=== PATIENT | female | born 1995 | race African-American/Black ===

== ENCOUNTER 2017-02-19 23:53 | Emergency (ER) | payer SELFPAY ==
[2017-02-20 01:16] LABS: #Eosinphils 0.2 thou/uL (0.0-0.7); #Lymphocytes 2.8 thou/uL (1.20-3.40); #Monocytes 0.8 thou/uL (0.11-0.59); #Neutrophils 4.2 thou/uL (1.40-6.50); %Basophils 0.3 % (0.0-1.0); %Eosinophils 2.6 % (0.0-10.0); %Lymphocytes 34.8 % (28.0-48.0); %Monocytes 9.9 % (0.0-4.0); %Neutrophils 52.4 % (31.0-61.0); Hemoglobin 11.1 g/dL (12.0-16.0); MDiff Complete? YES; Mean Corpuscular HGB CONC 30.9 g/dL (32.0-36.0); Mean Corpuscular Hemoglobin 21.3 pg (25.0-35.0); Mean Platelet Volume 6.7 fL (7.4-10.4); Microcytosis MODERATE=15-30 cells (100X) (0-5/hpf); PLT Morphology Comment Appears Adequate; Platelet Count 316 thou/uL (130-400); Red Blood Cell (RBC) Count 5.18 mill/uL (4.00-5.20); White Blood Cell (WBC) Count 7.9 thou/uL (4.8-10.8)
[2017-02-20] MEDS ORDERED: Ondansetron HCl/PF 4 MG/2 ML Vial ONE (01:17)
[2017-02-20] MEDS ORDERED: Sodium Chloride 0.9% 1,000 ML ONE (01:17)
[2017-02-20 01:23] LABS: Bilirubin Negative (Negative); Blood, Urine Moderate (Negative); Clarity Clear (Clear); Glucose, Urine (Dipstick) Negative (Negative); Leukocyte Negative (Negative); Nitrite Negative (Negative); Protein, Urine (Dipstick) 30 mg/dL (Neg-Trace); Specific Gravity, Urine 1.025 (1.005-1.030)
[2017-02-20 01:24] LABS: Pregnancy Test - Urine (BHCG) NEGATIVE (NEGATIVE); Pregu Control Bar Appear? YES (CONTROL BAR); Specific Gravity 1.025 (1.002-1.036)
[2017-02-20 01:28] LABS: Bacteria/HPF None Seen HPF (None Seen); RBC/HPF 21-50 HPF (0-3); WBC/HPF None Seen HPF (0-3)
[2017-02-20 01:29] LABS: CKMB 0.3 ng/mL (0-6.6); Troponin I Less than 0.010 ng/mL (< 0.028)
[2017-02-20 01:31] LABS: ALT (SGPT) 30 U/L (8-55); AST (SGOT) 19 U/L (5-34); Albumin 4.3 g/dL (3.5-5.0); Alkaline Phosphatase 85 U/L (40-150); Anion Gap 16 mmol/L (10-20); BUN (Urea Nitrogen) 13 mg/dL (7.0-18.7); Bilirubin, Total 0.2 mg/dL (0.2-1.2); Calc. Creatinine Clearance 0 mL/min (70-130); Calcium 9.3 mg/dL (7.8-10.44); Carbon Dioxide 22 mmol/L (22-29); Chloride 106 mmol/L (98-107); Estimated GFR-MDRD Greater than 90; Globulin 4.1 g/dL (2.4-3.5); Glucose 105 mg/dL (70-105); Lipase 16 U/L (8-78); Protein, Total 8.4 g/dL (6.0-8.3); Sodium 140 mmol/L (136-145)
[2017-02-20] MEDS ORDERED: Ketorolac Tromethamine 30 MG/ML VIAL ONE (01:50)
--- NOTE | 2017-02-20 07:52 | CT ---
PRELIMINARY REPORT/[facility]/EMERGENCY AFTER-HOURS PROCEDURE: EXAM: CT Abdomen and Pelvis Without Intravenous Contrast CLINICAL HISTORY: 21 years old, female; Pain; Abdominal pain; Generalized; Patient HX: Abdominal pain that has been going on for over a year. States it comes and goes, getting worse of over the past week or two. Nausea sometimes. ; Additional info: Pt shows no signs of discomfort, laughing and talking. TECHNIQUE: Axial computed tomography images of the abdomen and pelvis without intravenous contrast. This CT exam was performed using one or more of the following dose reduction techniques: automated exposure control, adjustment of the mA and/or kV according to patient size, and/or use of iterative reconstruction technique. Coronal and sagittal reformatted images were created and reviewed. COMPARISON: No relevant prior studies available. FINDINGS: Lower thorax: No acute findings. ABDOMEN: Liver: Unremarkable. Gallbladder and bile ducts: The gallbladder is collapsed. No calcified stones. No ductal dilation. Pancreas: Unremarkable. No ductal dilation. Spleen: Unremarkable. No splenomegaly. Adrenals: Unremarkable. No mass. Kidneys and ureters: Unremarkable. No obstructing stones. No hydronephrosis. Stomach and bowel: Unremarkable. No obstruction. No mucosal thickening. Appendix: Normal appendix. PELVIS: Bladder: Unremarkable. No stones. Reproductive: Unremarkable as visualized. ABDOMEN and PELVIS: Intraperitoneal space: Unremarkable. No free air. No significant fluid collection. Bones/joints: No acute fracture. No dislocation. Soft tissues: Unremarkable. Vasculature: Unremarkable. No abdominal aortic aneurysm. Lymph nodes: Unremarkable. No enlarged lymph nodes. IMPRESSION: No acute abnormality. Thank you for allowing us to participate in the care of your patient. Dictated and Authenticated by: Junie Martinez MD 02/20/2017 2:24 AM Central Time ([place] \T\ [place]) FINAL REPORT CT ABDOMEN AND PELVIS WITHOUT CONTRAST: HISTORY: Abdominal pain going on for a year. It comes and goes. It is getting worse over the past week or t wo. Nausea sometimes. FINDINGS: The lung bases are clear. No pericardial effusion. No nephroureteral lithiasis or hydroureteral nephrosis. No significant evidence of recently passed stone. Limited noncontrast evaluation of the spleen, pancreas, and liver are all unremarkable. The appendix is visualized and is normal. Aortoiliac contour is normal. No adenopathy. There are a few small ileocolic lymph nodes which are nonspecific. The skeleton is unremarkable. IMPRESSION: 1. No nephroureteral lithiasis or hydroureteral nephrosis. No significant evidence of recently pas sed stone. 2. No acute intraabdominal abnormality. POS: [facility]
== END 2017-02-20 03:05 | disposition home or self-care (01) ==
LOC: NAV ERS 23:53
DX: R10.32 Left lower quadrant pain (principal)
CPT/HCPCS: 36415; 74176; 80053; 81003; 81015; 81025; 82553; 83690; 84484; 85025; 93005; 96361; 96374; 96375; J1885; J2405; J7050

== ENCOUNTER 2018-06-13 19:17 | Emergency (ER) | payer SELFPAY ==
[2018-06-13] MEDS ORDERED: Ibuprofen 800 MG TAB ONE (19:41)
== END 2018-06-13 19:45 | disposition home or self-care (01) ==
LOC: NAV ERS 19:17
DX: J06.9 Acute upper respiratory infection, unspecified (principal); I10 Essential (primary) hypertension; J02.9 Acute pharyngitis, unspecified
CPT/HCPCS: 99283